=== PATIENT | male | born 1990 | race Caucasian/White ===

== ENCOUNTER 2024-07-07 04:27 | Emergency (ER) | payer OTHER ==
[~2024-07-07] VITALS: Ht 193 cm; Wt 109.1 kg
[2024-07-07 04:29] VITALS: BP 122/67; PULSE 66; RESP 18; TEMP 97.6; O2SAT 100
[2024-07-07] MEDS ORDERED: ACET-3385 PO (04:45)
[2024-07-07] MEDS ORDERED: OXYC5 PO (04:45)
[2024-07-07] MEDS ORDERED: IBUP-1492 PO (04:45)
[2024-07-07] MEDS: OxyCODONE HCL 5 MG IR TABLET PO ONE (05:01)
== END 2024-07-07 06:05 | disposition home or self-care (01) ==
LOC: EMS 04:29
DX: K08.89 Other specified disorders of teeth and supporting structures (principal)
CPT/HCPCS: 99283